=== PATIENT | female | born 1970 | race Caucasian/White ===

== ENCOUNTER 2024-06-26 10:09 | Emergency (ER) | payer OTHER ==
[2024-06-26 10:58] LABS: Specific Gravity < 1.005 (1.005-1.030); Sqamous Epithelial <5 /HPF (None Seen); Urine Bacteria None Seen /HPF (<20); Urine Bilirubin NEGATIVE (Negative); Urine Blood Negative (Negative); Urine Clarity Turbid (Clear); Urine Color Colorless (Yellow); Urine Culture Reflex Order NOT NEEDED; Urine Glucose NEGATIVE (Negative); Urine Ketones NEGATIVE (Negative); Urine Microscopic Reflex YN ORDER UMIC; Urine Nitrite NEGATIVE (Negative); Urine Protein NEGATIVE (Negative); Urine RBC None Seen /HPF (None Seen); Urine Urobilinogen Normal (Normal); Urine WBC <5 /HPF (<5)
[2024-06-26 11:24] LABS: Absolute Eosinophils 0.1 K/uL (0-0.5); Absolute Lymphocytes (CBC) 1.6 K/uL (0.7-4.9); Absolute Monocytes 0.7 K/uL (0.1-1.3); Absolute Neutrophil 5.6 K/uL (1.8-8.0); Basophils % 0.5 % (0-1.3); Hematocrit 45.2 % (36.0-45.0); Lymphocytes % 19.9 % (15.3-44.8); MCH 28.4 pg (27.0-35.0); MCHC 33.1 g/dL (32.0-36.0); MCV 85.8 fL (80-100); MPV 7.2 fL (7.6-11.3); Monocytes % 8.7 % (3.3-12.3); Neutrophils % 69.9 % (41.7-73.7); Platelets 383 thou/uL (152-406); RBC Red Blood Cell Count 5.27 M/uL (3.86-4.86); Red Cell Distribution Width 14.3 % (12.1-15.2)
[2024-06-26 11:40] LABS: Albumin 4.2 g/dL (3.4-5.0); Anion Gap 7.1 mEq/L (5.0-15.0); Bilirubin Total 0.5 mg/dL (0.2-1.0); Globulin 4.1 g/dL (2.3-3.5); Potassium 4.1 mEq/L (3.5-5.1); Protein, Total 8.3 g/dL (6.4-8.2)
--- NOTE | 2024-06-26 12:11 | RAD REPORT ---
EXAM DESCRIPTION: CTAbdomen Pelvis W Contrast - 06/26/2024 11:54 am CLINICAL HISTORY: ABD PAIN COMPARISON: No comparisons TECHNIQUE: CT of the abdomen and pelvis was performed with IV contrast. All CT scans are performed using dose optimization technique as appropriate and may include automated exposure control or mA/KV adjustment according to patient size. FINDINGS: Lower chest: Mild circumferential thickened distal esophagus . Liver: Too small to characterize liver lesions which are likely benign. Biliary: No biliary ductal dilatation. Stomach: No significant focal abnormality. Duodenum: No significant focal abnormality. Pancreas: No significant abnormality. Spleen: No significant abnormality. Adrenal: No suspicious lesions. Kidney/ureter: No hydronephrosis. Mild right hydroureter. 2 mm stone in the right kidney. 4 mm stone in the right distal ureter just proximal to the UVJ. The distal ureter on the right has urothelial th ickening. Retroperitoneum: No retroperitoneal adenopathy. Vascular: No aneurysm. Bowel: No significant focal abnormality. Peritoneum: No ascites or free air. Bladder: Grossly unremarkable. Reproductive: No adnexal masses. Bones: No acute fracture. Other: n/a IMPRESSION: Nonobstructing stone in the distal right ureter measuring approximately 4 millimeters wh ich is just proximal to the UVJ. The adjacent urothelium is thickened which could indicate inflammati on.
[2024-06-26] MEDS ORDERED: KETOROLAC 30 MG/ML INJ ONE (12:24)
[2024-06-26] MEDS ORDERED: TAMSULOSIN 0.4 MG SR CAP ONE (12:24)
[2024-06-26] MEDS ORDERED: MAGNESIUM SULFATE 1 gm IVPB 1 GM/100 ML BAG IV ONE (12:24)
--- NOTE | 2024-06-26 13:13 | EDPHYS ---
Physician Documentation [facility] Name: Quynh Azar Age: 53 yrs Sex: Female : 1970 Arrival Date: 06/26/2024 Time: 10:09 Bed 19 Private MD: ED Physician Raman Hendricks HPI: 06/26 10:28 This 53 yrs old Female presents to ER via Ambulatory with complaints of Pelvic Pain. rn 10:28 The patient presents with urinary symptoms, dysuria, frequency, urgency. Onset: The rn symptoms/episode began/occurred 4 day(s) ago. Modifying factors: The symptoms are alleviated by nothing, the symptoms are aggravated by urinating. Severity of symptoms: At their worst the symptoms were mild, in the emergency department the symptoms are unchanged. The patient has not experienced similar symptoms in the past. Patient reports suprapubic abdominal pain with dysuria and increased urinary frequency. No fever. No trauma. No vaginal discharge or bleeding.. 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 - Infectious Disease History:: Denies. - Social history:: Smoking status: Patient denies any tobacco usage or history of. - Family history:: not pertinent. - Hospitalizations: : No recent hospitalization is reported. ROS: 10:28 Constitutional: Negative for fever, chills, and weight loss, Cardiovascular: Negative rn for chest pain, palpitations, and edema, Respiratory: Negative for shortness of breath, cough, wheezing, and pleuritic chest pain, Abdomen/GI: Positive for suprapubic pain : Positive for dysuria and increased urinary frequency, negative for bleeding or vaginal complaints Exam: 10:28 Constitutional: This is a well developed, well nourished patient who is awake, alert, rn and in no acute distress. Cardiovascular: Regular rate and rhythm. No pulse deficits. Abdomen/GI: Soft, no focal tenderness. No peritoneal signs. Back: No spinal tenderness. No costovertebral tenderness. Full range of motion. Vital Signs: 10:24 BP 136 / 96; Pulse 65; Resp 16; Temp 98.2(O); Pulse Ox 97% on R/A; Weight 81.65 kg; hb Height 5 ft. 3 in. ; Pain 7/10; 10:37 BP 136 / 96; Pulse 68; Resp 20; Temp 98.6; Pulse Ox 96% on R/A; kj2 11:30 BP 134 / 96; Pulse 61; Resp 16; Pulse Ox 98% ; me1 12:30 BP 128 / 74; Pulse 64; Resp 15; Pulse Ox 97% ; me1 13:34 BP 116 / 75; Pulse 62; Resp 15; Temp 98.2; Pulse Ox 96% ; me1 10:24 Body Mass Index 31.89 (81.65 kg, 160.02 cm) hb 10:24 Pain Scale: Adult hb MDM: 10:11 Patient medically screened. rn 13:12 Differential diagnosis: kidney stone, urinary tract infection. Data reviewed: vital rn signs, nurses notes, lab test result(s), radiologic studies, CT scan, and as a result, I will discharge patient. Counseling: I had a detailed discussion with the patient and/or guardian regarding the historical points, exam findings, and any diagnostic results supporting the discharge/admit diagnosis, lab results, radiology results, the need for outpatient follow up, to return to the emergency department if symptoms worsen or persist or if there are any questions or concerns that arise at home. Response to treatment: the patient's symptoms have markedly improved after treatment, and as a result, I will discharge patient. Special discussion: I discussed with the patient/guardian in detail that at this point there is no indication for admission to the hospital. It is understood, however, that if the symptoms persist or worsen the patient needs to return immediately for re-evaluation. Based on the history and exam findings, there is no indication for further emergent testing or inpatient evaluation. I discussed with the patient/guardian the need to see the urologist for further evaluation of the symptoms. 06/26 10:26 Order name: Urinalysis w/ reflexes; Complete Time: rn 06/26 10:26 Order name: Test, Urine; Complete Time: rn 06/26 10:59 Order name: CBC with Diff; Complete Time: 11:44 rn 06/26 10:59 Order name: CMP; Complete Time: : rn 06/26 10:59 Order name: Lipase; Complete Time: : rn 06/26 10:59 Order name: CT Abd/Pelvis - IV Contrast Only; Complete Time: 12:15 rn 06/26 10:59 Order name: IV Saline Lock; Complete Time: 11:16 rn 06/26 10:59 Order name: Labs collected and sent; Complete Time: 11:16 rn Administered Medications: 12:35 Drug: Ketorolac IVP 15 mg IVP once Route: IVP; Site: right antecubital; me1 13:14 Follow up: Response: No adverse reaction; Pain is decreased me1 12:35 Drug: Flomax PO 0.4 mg PO once Route: PO; me1 13:14 Follow up: Response: No adverse reaction me1 12:35 Drug: Magnesium Sulfate IVPB 1 grams IVPB once over 1 hrs Route: IVPB; Infused Over: 1 me1 hrs; Site: right antecubital; 13:34 Follow up: Response: No adverse reaction; IV Status: Completed infusion me1 Disposition Summary: 06/26/24 13:12 Discharge Ordered Notes: Location: Home rn Problem: new rn Symptoms: have improved rn Condition: Stable rn Diagnosis - Calculus of ureter rn Followup: rn - With: Private Physician - When: As needed - Reason: Recheck today's complaints, Re-evaluation by your physician Discharge Instructions: - Discharge Summary Sheet rn - Kidney Stones rn - Renal Colic rn - Dietary Guidelines to Help Prevent Kidney Stones rn Forms: - Medication Reconciliation Form rn - Antibiotic rn cardiac cath - Prescription Opioid Use rn - Patient Portal Instructions rn - Leadership Thank You Letter rn Prescriptions: - Flomax 0.4 mg Oral capsule - take 1 capsule ORAL route every 24 hours As needed stop taking once you feel rn that you have passed your kidney stone, can cause low blood pressure; 10 capsule; Refills: 0, Product Selection Permitted - ondansetron 4 mg Oral Tablet,disintegrating - take 1 tablet ORAL route every 8 hours As needed; 12 tablet; Refills: 0, rn Product Selection Permitted - Cipro 500 mg Oral Tablet - take 1 tablet ORAL route every 12 hours for 7 days; 14 tablet; Refills: 0, rn Product Selection Permitted - Tramadol 50 mg Oral Tablet - take 1 tablet ORAL route every 8 hours as needed; 12 tablet; Refills: 0, rn Product Selection Permitted Signatures: Dispatcher [employer] Raman Balbuena MD MD rn Baxter, Heather, RN RN Korin Diaz RN RN me1 Corrections: (The following items were deleted from the chart) 10:26 10:26 Urinalysis+U.LAB.BRZ ordered. EDMS EDMS 10:59 10:59 CBC+H.LAB.BRZ ordered. EDMS EDMS 10:59 10:59 COMPREHENSIVE METABOLIC PANEL+C.LAB.BRZ ordered. EDMS EDMS 10:59 10:59 LIPASE+C.LAB.BRZ ordered. EDMS EDMS
--- NOTE | 2024-06-26 13:13 | ER ---
Nurse's Notes [facility] Name: Quynh Azar Age: 53 yrs Sex: Female : 1970 Arrival Date: 06/26/2024 Time: 10:09 Bed 19 Private MD: Diagnosis: Calculus of ureter Presentation: 06/26 10:24 Chief complaint: Pain with urination, urinary frequency, difficulty urinating, nausea, hb chills, and pelvic pain x 4-5 days. Coronavirus screen: At this time, the client does not indicate any symptoms associated with coronavirus-19. Ebola Screen: No symptoms or risks identified at this time. Initial Sepsis Screen: Does the patient meet any 2 criteria? No. Patient's initial sepsis screen is negative. Does the patient have a suspected source of infection? No. Patient's initial sepsis screen is negative. Risk Assessment: Do you want to hurt yourself or someone else? Patient reports no desire to harm self or others. Onset of symptoms was June 21, 2024. 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 - Infectious Disease History:: Denies. - Social history:: Smoking status: Patient denies any tobacco usage or history of. - Family history:: not pertinent. - Hospitalizations: : No recent hospitalization is reported. Screenin:38 [facility] ED Fall Risk Assessment (Adult) History of falling in the last 3 months, kj2 including since admission No falls in past 3 months (0 pts) Confusion or Disorientation No (0 pts) Intoxicated or Sedated No (0 pts) Impaired Gait No (0 pts) Mobility Assist Device Used No (0 pt) Altered Elimination No (0 pt) Score/Fall Risk Level 0 - 2 = Low Risk. Abuse screen: Denies threats or abuse. Denies injuries from another. Nutritional screening: No deficits noted. Tuberculosis screening: No symptoms or risk factors identified. Assessment: 10:36 General: Appears in no apparent distress. Behavior is calm, cooperative. Pain: kj2 Complains of pain in LOWER ABDOMEN Pain currently is 7 out of 10 on a pain scale. Neuro: Level of Consciousness is awake, alert, Oriented to person, place, time. Cardiovascular: Patient's skin is warm and dry. Respiratory: Airway is patent. : Reports burning with urination, urinary frequency. 11:18 Reassessment: No changes from previously documented assessment. Patient and/or family kj2 updated on plan of care and expected duration. Pain level reassessed. 12:20 General: Appears uncomfortable, well groomed, well developed, well nourished, Behavior me1 is calm, cooperative, appropriate for age, Reports Pain with urination, urinary frequency, difficulty urinating, nausea, chills, and pelvic pain x 4-5 days. Pain: Complains of pain in pelvis Pain does not radiate. Pain currently is 7 out of 10 on a pain scale. Quality of pain is described as pressure, Pain began 4-5 days ago. Neuro: Level of Consciousness is awake, alert, obeys commands, Oriented to person, place, time, situation, Appropriate for age. Cardiovascular: Patient's skin is warm and dry. Respiratory: Airway is patent Respiratory effort is even, unlabored, Respiratory pattern is regular, symmetrical. GI: No signs and/or symptoms were reported involving the gastrointestinal system. : Reports burning with urination, pain in suprapubic area urinary frequency. EENT: No signs and/or symptoms were reported regarding the EENT system. Derm: Skin is intact, is healthy with good turgor, Skin is pink, warm \T\ dry. Musculoskeletal: No signs and/or symptoms reported regarding the musculoskeletal system. Vital Signs: 10:24 BP 136 / 96; Pulse 65; Resp 16; Temp 98.2(O); Pulse Ox 97% on R/A; Weight 81.65 kg; hb Height 5 ft. 3 in. ; Pain 7/10; 10:37 BP 136 / 96; Pulse 68; Resp 20; Temp 98.6; Pulse Ox 96% on R/A; kj2 11:30 BP 134 / 96; Pulse 61; Resp 16; Pulse Ox 98% ; me1 12:30 BP 128 / 74; Pulse 64; Resp 15; Pulse Ox 97% ; me1 13:34 BP 116 / 75; Pulse 62; Resp 15; Temp 98.2; Pulse Ox 96% ; me1 10:24 Body Mass Index 31.89 (81.65 kg, 160.02 cm) hb 10:24 Pain Scale: Adult hb ED Course: 10:11 Patient arrived in ED. ra3 10:11 Raman Hendricks MD is Attending Physician. rn 10:25 Triage completed. hb 10:26 Arm band placed on. hb 10:29 Angella Callahan, RN is Primary Nurse. kj2 10:39 Patient has correct armband on for positive identification. Bed in low position. Call kj2 light in reach. Provided Education on: CALL LIGHT, FALL PRECAUTIONS. 10:40 No provider procedures requiring assistance completed. kj2 11:16 Inserted saline lock: 20 gauge in right antecubital area, using aseptic technique. kj2 Blood collected. Flushed with 10 mL NS. 11:56 CT Abd/Pelvis - IV Contrast Only In Process Unspecified. EDMS 13:40 IV discontinued, intact, bleeding controlled, No redness/swelling at site. Pressure me1 dressing applied. Administered Medications: 12:35 Drug: Ketorolac IVP 15 mg IVP once Route: IVP; Site: right antecubital; me1 13:14 Follow up: Response: No adverse reaction; Pain is decreased me1 12:35 Drug: Flomax PO 0.4 mg PO once Route: PO; me1 13:14 Follow up: Response: No adverse reaction me1 12:35 Drug: Magnesium Sulfate IVPB 1 grams IVPB once over 1 hrs Route: IVPB; Infused Over: 1 me1 hrs; Site: right antecubital; 13:34 Follow up: Response: No adverse reaction; IV Status: Completed infusion me1 Medication: 10:39 VIS not applicable for this client. kj2 Outcome: 13:12 Discharge ordered by . rn 13:40 Discharged to home ambulatory, me1 13:40 Condition: stable 13:40 Discharge instructions given to patient, Instructed on discharge instructions, follow up and referral plans. medication usage, Demonstrated understanding of instructions, follow-up care, medications, Prescriptions given X 4, 13:41 Patient left the ED. me1 Signatures: Dispatcher [employer] EDMS Raman Hendricks MD MD rn Baxter, Heather, RN RN Korin Diaz RN RN me1 Joanie Varma ra3 Angella Callahan RN RN kj2 Corrections: (The following items were deleted from the chart) 13:15 10:24 Chief complaint: Pain with urination, urinary frequency, difficulty urinating, me1 nausea, chills, and pelvic pain x 4-5 days hb
[2024-06-26 14:47] VITALS: TEMP 98.2
[2024-06-26 14:53] VITALS: BP 116/75; O2SAT 96
== END 2024-06-26 13:41 | disposition home or self-care (01) ==
LOC: ER 10:09
DX: N20.1 Calculus of ureter (principal)
CPT/HCPCS: 96365; 85025; 81001; 36415; 81025; 83690; 80053; 74177; 96375; 99284; Q9967; J3475